=== PATIENT | female | born 2000 ===

== ENCOUNTER 2019-01-25 19:35 | Inpatient (IN) | payer OTHER ==
[~2019-01-25] VITALS: Ht 172.7 cm; Wt 83.2 kg
[2019-01-25] MEDS ORDERED: FLUO-191 PO (20:06)
[2019-01-25] MEDS ORDERED: LAMO25 PO (20:06)
[2019-01-25] MEDS ORDERED: TRIL2 PO (20:06)
[2019-01-25] MEDS ORDERED: BENZ2AMP IM (20:06)
[2019-01-25] MEDS ORDERED: BENZ1TAB10 PO (20:06)
[2019-01-25 20:39] LABS: BASOPHILS % (AUTO) 0.1 % (0.0-2.0); EOSINOPHILS % (AUTO) 0 % (1.0-6.0); HEMATOCRIT 36.8 % (36-46); HEMOGLOBIN 11.8 g/dL (12.0-16.0); LYMPHOCYTES % (AUTO) 11.3 % (22.0-44.0); MEAN CORPUSCULAR HEMOGLOBIN 27.7 pg (26.0-34.0); MEAN CORPUSCULAR HGB CONC 31.9 G/dL (31.0-37.0); MEAN CORPUSCULAR VOLUME 87 fL (80-100); MONOCYTES # (AUTO) 0.3 K/uL (0.1-1.0); NEUTROPHILS # (AUTO) 7.1 K/uL (1.8-7.7); NEUTROPHILS % (AUTO) 84.6 % (40.0-70.0); PLATELET COUNT (AUTO) 308 K/uL (150-450); RED BLOOD CELL COUNT(AUTO) 4.25 MIL/uL (4.00-5.20); RED CELL DISTRIBUTION WIDTH 14.7 % (11.5-14.5)
[2019-01-25 20:55] LABS: ANION GAP 12 mmol/L (8-16); CALCIUM, TOTAL 9.5 mg/dL (8.8-10.5); CARBON DIOXIDE 26 mmol/L (22-29); CHLORIDE 101 mmol/L (98-107); CREATININE 0.61 mg/dL (0.60-1.30); GLOMERULAR FILTR. RATE CALC > 60 mL/min (>60); GLUCOSE,RANDOM 108 mg/dL (70-110); POTASSIUM 3.7 mmol/L (3.5-5.1); SODIUM SERUM 139 mmol/L (136-145); UREA NITROGEN, BLOOD 7 mg/dL (7-18)
[2019-01-25 21:00] LABS: AMPHET/METH SCREEN,URINE NEGATIVE (NEGATIVE); BARBITURATE SCREEN, URINE NEGATIVE (NEGATIVE); BENZODIAZEPINES SCREEN,URINE NEGATIVE (NEGATIVE); CANNABINOID SCREEN,URINE NEGATIVE (NEGATIVE); COCAINE SCREEN,URINE NEGATIVE (NEGATIVE); METHADONE SCREEN, URINE NEGATIVE (NEGATIVE); OPIATE SCREEN,URINE NEGATIVE (NEGATIVE); PHENCYCLIDINE SCREEN,URINE NEGATIVE (NEGATIVE)
[2019-01-25 21:01] LABS: ALANINE AMINOTRANSFERASE 20 U/L (12-78); ALBUMIN 4.5 g/dL (3.4-5.0); ALKALINE PHOSPHATASE 128 U/L (46-116); ASPARTATE AMINOTRANSFERASE 15 U/L (15-37); BILIRUBIN,TOTAL 0.2 mg/dL (0.1-1.0)
[2019-01-25 21:10] LABS: SALICYLATE < 2.8 mg/dL (2.8-20.0)
[2019-01-25 21:12] LABS: ACETAMINOPHEN < 2 mcg/mL (10-30)
[2019-01-25] MEDS ORDERED: HALOPERIDOL 5 MG TABLET PO PRN (23:00)
[2019-01-25] MEDS ORDERED: ZOLPIDEM TARTRATE 10 MG TABLET PO PRN (23:00)
[2019-01-25] MEDS ORDERED: LORazepam 2 MG TABLET PO PRN (23:00)
[2019-01-25 23:39] VITALS: BP 130/68
[2019-01-26 04:44] VITALS: BP 107/66
[2019-01-26 06:26] LABS: CHOL/HDL RATIO 2.8 (3.9-5.7)
[2019-01-26 07:56] VITALS: BP 110/63
[2019-01-26 11:20] VITALS: BP 109/60
[2019-01-26] MEDS ORDERED: IBUPROFEN 400 MG TABLET PO PRN (11:30)
[2019-01-26] MEDS ORDERED: CloNIDine HCL 0.1 MG TABLET PO PRN (11:30)
[2019-01-26] MEDS ORDERED: ONDANSETRON HCL 4 MG TABLET PO PRN (11:30)
[2019-01-26] MEDS ORDERED: ALBUTEROL SULFATE HFA 90 MCG/PUFF 8 GM INHALER IH PRN (11:30)
[2019-01-26] MEDS ORDERED: ACETAMINOPHEN 325 MG TABLET PO PRN (11:30)
[2019-01-26] MEDS ORDERED: GuaiFENesin/D-METHORPHAN [SUGAR-FREE] 200-20MG/10 ML SYRUP UDCUP PO PRN (11:30)
[2019-01-26] MEDS ORDERED: LOPERAMIDE HCL 2 MG CAPSULE PO PRN (11:30)
[2019-01-26] MEDS ORDERED: PETROLATUM,WHITE 28 GM JELLY TP PRN (11:30)
[2019-01-26] MEDS ORDERED: MAGNESIUM HYDROXIDE SUSPENSION 30 ML UDCUP PO PRN (11:30)
[2019-01-26] MEDS ORDERED: NICOTINE 14 MG/24 HOUR PATCH TD PRN (11:30)
[2019-01-26] MEDS ORDERED: MAG HYDROX/AL HYDROX/SIMETH ES 30 ML SUSPENSION UDCUP PO PRN (11:30)
[2019-01-26 15:10] VITALS: BP 109/62
[2019-01-26] MEDS: FLUoxetine HCL 20 MG CAPSULE PO SCH (16:31)
[2019-01-26 19:57] VITALS: BP 113/65
[2019-01-26] MEDS: LamoTRIgine 25 MG TABLET PO SCH (20:05)
[2019-01-26] MEDS: BENZTROPINE MESYLATE 1 MG TABLET PO SCH (20:06)
[2019-01-26] MEDS: PERPHENAZINE 2 MG TABLET PO SCH (20:06)
[2019-01-27] VITALS (7 sets, daily range): BP systolic 98–127; BP diastolic 57–81
[2019-01-27] MEDS: LamoTRIgine 25 MG TABLET PO SCH ×2 (09:09→20:08)
[2019-01-27] MEDS: BENZTROPINE MESYLATE 1 MG TABLET PO SCH ×2 (09:09→20:08)
[2019-01-27] MEDS: FLUoxetine HCL 20 MG CAPSULE PO SCH (09:09)
[2019-01-27] MEDS: DOCUSATE SODIUM 100 MG CAPSULE PO PRN (09:09)
[2019-01-27] MEDS: PERPHENAZINE 2 MG TABLET PO SCH ×2 (09:10→20:08)
[2019-01-27] MEDS ORDERED: TraZODone HCL 50 MG TABLET PO PRN (13:00)
[2019-01-27] MEDS ORDERED: HydrOXYzine PAMOATE 50 MG CAPSULE PO PRN (13:00)
[2019-01-28 04:50] VITALS: BP 113/62
[2019-01-28 07:49] VITALS: BP 103/53
[2019-01-28] MEDS: PERPHENAZINE 2 MG TABLET PO SCH ×2 (08:08→20:16)
[2019-01-28] MEDS: FLUoxetine HCL 20 MG CAPSULE PO SCH (08:08)
[2019-01-28] MEDS: BENZTROPINE MESYLATE 1 MG TABLET PO SCH ×2 (08:08→20:16)
[2019-01-28] MEDS: LamoTRIgine 25 MG TABLET PO SCH ×2 (08:08→20:16)
[2019-01-28] MEDS: DOCUSATE SODIUM 100 MG CAPSULE PO PRN (08:08)
[2019-01-28 12:01] VITALS: BP 92/51
[2019-01-28 16:01] VITALS: BP 101/58
[2019-01-28 20:50] VITALS: BP 105/66
[2019-01-29 00:07] VITALS: BP 112/70
[2019-01-29 04:56] VITALS: BP 108/63
[2019-01-29 08:09] VITALS: BP 100/58
[2019-01-29] MEDS: FLUoxetine HCL 20 MG CAPSULE PO SCH (08:34)
[2019-01-29] MEDS: LamoTRIgine 25 MG TABLET PO SCH (08:34)
[2019-01-29] MEDS: BENZTROPINE MESYLATE 1 MG TABLET PO SCH (08:34)
[2019-01-29] MEDS: PERPHENAZINE 2 MG TABLET PO SCH (08:35)
[2019-01-29 12:01] VITALS: BP 109/60
== END 2019-01-29 13:00 | DRG 885 ==
LOC: EMS 19:42 → EDBD 19:42 → 6S 22:30
PROVIDERS: ADMIT Psychiatry & Neurology Child & Adolescent Psychiatry; ATTEND Psychiatry & Neurology Child & Adolescent Psychiatry
DX: F25.0 Schizoaffective disorder, bipolar type (principal); F50.2 Bulimia nervosa; G44.209 Tension-type headache, unspecified, not intractable; D64.9 Anemia, unspecified; F60.3 Borderline personality disorder
CPT/HCPCS: G0480; G0481